=== PATIENT | female | born 1990 | race Caucasian/White ===

== ENCOUNTER 2017-07-26 11:18 | Outpatient (CLI) | payer MEDICAID, OTHER ==
[2017-07-26 18:51] LABS: BASOPHILS # (AUTO) 0.2 10^3/uL (0.0-0.1); BASOPHILS % (AUTO) 2.3 %; EOSINOPHILS # (AUTO) 0.2 10^3/uL (0.0-0.7); EOSINOPHILS % (AUTO) 3.3 %; HCT - HEMATOCRIT 39.5 % (37.0-47.0); LYMPHOCYTES # (AUTO) 2.6 10^3/uL (1.5-3.5); LYMPHOCYTES % (AUTO) 38.3 %; MEAN CORPUSCULAR HEMOGLOBIN 27.7 pg (27.0-31.0); MEAN CORPUSCULAR HGB CONC 33.1 g/dL (32.0-36.0); MEAN CORPUSCULAR VOLUME 83.7 fL (81.0-99.0); MEAN PLATELET VOLUME 7.6 fL (7.9-10.8); MONOCYTES # (AUTO) 0.5 10^3/uL (0.0-1.0); MONOCYTES % (AUTO) 6.7 %; NEUTROPHILS # (AUTO) 3.3 10^3/uL (1.5-6.6); NEUTROPHILS % (AUTO) 49.4 %; NUCLEATED RED BLOOD CELLS AUTO 0.1 /100WBC; RED BLOOD COUNT 4.71 10^6/uL (4.20-5.40); UNCORRECTED WHITE BLOOD COUNT 6.8 x10^3/uL; WHITE BLOOD COUNT 6.8 x10^3/uL (4.8-10.8)
[2017-07-26 19:33] LABS: ALBUMIN/GLOBULIN RATIO 1.6 (1.0-2.2); BILIRUBIN,TOTAL 0.2 mg/dL (0.2-1.0); BUN - BLOOD UREA NITROGEN 12 mg/dL (6-20); CALCIUM 8.7 mg/dL (8.5-10.3); CARBON DIOXIDE - CO2 24 mmol/L (21-32); CHLORIDE 107 mmol/L (101-111); CHOL/HDL RATIO 2.9 (<4.4); CHOLESTEROL 158 mg/dL; CREATININE 0.7 mg/dL (0.4-1.0); GFR - MDRD 100 (>89); GLUCOSE 90 mg/dL (70-100); HDL CHOLESTEROL 54 mg/dL; LDL/HDL RATIO 1.6 (<4.4); POTASSIUM 3.4 mmol/L (3.5-5.0); SODIUM 139 mmol/L (135-145); TOTAL PROTEIN 7.7 g/dL (6.7-8.2); TRIGLYCERIDES 78 mg/dL; VLDL CHOLESTEROL 16 mg/dL
[2017-07-26 19:42] LABS: THYROID STIMULATING HORMONE 7.66 uIU/mL (0.34-5.60)
== END 2017-07-26 11:19 | disposition home or self-care (01) ==
LOC: LAB.N 11:18
PROVIDERS: ATTEND Nurse Practitioner Gerontology
DX: Z13.9 Encounter for screening, unspecified (principal)
CPT/HCPCS: 36415; 80053; 80061; 84439; 84443; 85025

== ENCOUNTER 2018-03-17 09:01 | Outpatient (CLI) | payer MEDICAID | END 2018-03-17 09:02 | LOC: LAB.N 09:01 | PROVIDERS: ATTEND Nurse Practitioner Gerontology | DX: E03.9 Hypothyroidism, unspecified (principal) | CPT/HCPCS: 36415; 84443 ==

== ENCOUNTER 2018-05-05 15:59 | Outpatient (CLI) | payer MEDICAID | END 2018-05-05 16:00 | disposition home or self-care (01) | LOC: LAB 15:59 | PROVIDERS: ATTEND Nurse Practitioner Gerontology | DX: E03.9 Hypothyroidism, unspecified (principal) | CPT/HCPCS: 36415; 84443 ==

== ENCOUNTER 2018-07-14 09:26 | Outpatient (CLI) | payer MEDICAID ==
--- NOTE | 2018-07-15 13:16 | Ultrasound Report ---
Reason: BREAST LUMPS LEFT Procedure Date: 07/14/2018 Accession Number: [id number] / [id number] Procedure: US - Breast Unilateral Limited CPT Code: FULL RESULT: EXAM: Breast Unilateral Limited Right, Breast Unilateral Limited Left DATE: 07/14/2018 10:50 AM CLINICAL HISTORY: BILATERAL BREAST LUMPS TECHNIQUE: Real-time scanning by the massotherapist was saved static images reviewed. COMPARISON: None FINDINGS: Right breast: The right breast lower outer quadrant is scanned. No cystic or solid mass or abnormal fluid collections are identified. Left breast: The left breast lower inner quadrant is scanned. No cystic or solid mass or abnormal fluid collections are identified. IMPRESSION: 1. Negative right breast ultrasound lower outer quadrant. 2. Negative left breast ultrasound lower inner quadrant. BI-RADS 1: Negative
--- NOTE | 2018-07-15 13:16 | Ultrasound Report ---
Reason: BREAST LUMPS RIGHT Procedure Date: 07/14/2018 Accession Number: [id number] / [id number] Procedure: US - Breast Unilateral Limited CPT Code: FULL RESULT: EXAM: Breast Unilateral Limited Right, Breast Unilateral Limited Left DATE: 07/14/2018 10:50 AM CLINICAL HISTORY: BILATERAL BREAST LUMPS TECHNIQUE: Real-time scanning by the environmental marketer was saved static images reviewed. COMPARISON: None FINDINGS: Right breast: The right breast lower outer quadrant is scanned. No cystic or solid mass or abnormal fluid collections are identified. Left breast: The left breast lower inner quadrant is scanned. No cystic or solid mass or abnormal fluid collections are identified. IMPRESSION: 1. Negative right breast ultrasound lower outer quadrant. 2. Negative left breast ultrasound lower inner quadrant. BI-RADS 1: Negative
== END 2018-07-14 09:27 | disposition home or self-care (01) ==
LOC: DI 09:26
PROVIDERS: ATTEND Nurse Practitioner Gerontology
DX: N63.20 Unspecified lump in the left breast, unspecified quadrant (principal); N63.10 Unspecified lump in the right breast, unspecified quadrant
CPT/HCPCS: 76642

== ENCOUNTER 2018-08-27 16:57 | Outpatient (CLI) | payer MEDICAID ==
--- NOTE | 2018-08-28 10:49 | Ultrasound Report ---
Reason: PAINFUL MENSTRUAL FLOW Procedure Date: 08/27/2018 Accession Number: [id number] / [id number] Procedure: US - Pelvic w/Transvaginal CPT Code: FULL RESULT: EXAM: PELVIC ULTRASOUND EXAM DATE: 08/27/2018 05:06 PM. CLINICAL HISTORY: Painful menstrual flow. COMPARISON: None. TECHNIQUE: Realtime transabdominal pelvic scan performed to identify the uterus and adnexa and as an overview of other pelvic structures, followed by transvaginal scan to provide greater detail of the uterus and adnexa, with static image documentation. FINDINGS: Uterus: 7.5 x 2.4 x 3.6 cm, volume 34 cc. Anteverted position. Normal overall size and echotexture. Masses: None. Endometrium: 7 mm. Normal. Cervix: Unremarkable. Right Ovary: Not visualized. Left Ovary: Not visualized. Free Fluid: None. Other: None. IMPRESSION: Normal appearing endometrium. Nonvisualization of the ovaries and adnexa. [facility]
== END 2018-08-27 16:58 | disposition home or self-care (01) ==
LOC: DI 16:57
PROVIDERS: ATTEND Nurse Practitioner Gerontology
DX: N94.6 Dysmenorrhea, unspecified (principal)
CPT/HCPCS: 76830; 76856

== ENCOUNTER 2022-12-05 15:10 | Outpatient (CLI) | payer BC ==
[2022-12-05 17:34] LABS: BASOPHILS # (AUTO) 0.1 10^3/uL (0.0-0.1); BASOPHILS % (AUTO) 1.2 %; EOSINOPHILS # (AUTO) 0.1 10^3/uL (0.0-0.7); EOSINOPHILS % (AUTO) 1.9 %; HCT - HEMATOCRIT 40.1 % (37.0-47.0); HGB - HEMOGLOBIN 13.1 g/dL (12.0-16.0); LYMPHOCYTES # (AUTO) 1.8 10^3/uL (1.5-3.5); LYMPHOCYTES % (AUTO) 26.5 %; MEAN CORPUSCULAR HEMOGLOBIN 27.3 pg (27.0-31.0); MEAN CORPUSCULAR HGB CONC 32.7 g/dL (32.0-36.0); MEAN CORPUSCULAR VOLUME 83.7 fL (81.0-99.0); MEAN PLATELET VOLUME 9.3 fL (7.9-10.8); MONOCYTES # (AUTO) 0.4 10^3/uL (0.0-1.0); NEUTROPHILS # (AUTO) 4.3 10^3/uL (1.5-6.6); NEUTROPHILS % (AUTO) 64.3 %; PLT - PLATELET COUNT 227 10^3/uL (130-450); RED BLOOD COUNT 4.79 10^6/uL (4.20-5.40); RED CELL DISTRIBUTION WIDTH 13.5 % (12.0-15.0); WHITE BLOOD COUNT 6.7 x10^3/uL (4.8-10.8)
[2022-12-05 18:09] LABS: ALBUMIN 4.6 g/dL (3.2-5.5); ALBUMIN/GLOBULIN RATIO 1.5 (1.0-2.2); ALKALINE PHOSPHATASE 92 IU/L (42-121); ALT ALANINE AMINOTRANSFERASE 46 IU/L (10-60); AST ASPARTATE AMINOTRANSFERASE 34 IU/L (10-42); BILIRUBIN,TOTAL 0.4 mg/dL (0.2-1.0); BUN - BLOOD UREA NITROGEN 15 mg/dL (6-20); CALCIUM 9.1 mg/dL (8.5-10.3); CARBON DIOXIDE - CO2 28 mmol/L (21-32); CHLORIDE 107 mmol/L (101-111); CHOL/HDL RATIO 2.6 (<4.4); CHOLESTEROL 153 mg/dL; CREATININE 0.8 mg/dL (0.4-1.0); GFR - MDRD 83 (>89); GLUCOSE 104 mg/dL (70-100); HDL CHOLESTEROL 60 mg/dL; LDL CHOLESTEROL,CALCULATED 71 mg/dL; LDL/HDL RATIO 1.2 (<4.4); POTASSIUM 4.1 mmol/L (3.5-5.0); SODIUM 143 mmol/L (135-145); TOTAL PROTEIN 7.6 g/dL (6.7-8.2); TRIGLYCERIDES 111 mg/dL; VLDL CHOLESTEROL 22 mg/dL
[2022-12-05 18:26] LABS: THYROID STIMULATING HORMONE 2.32 uIU/mL (0.34-5.60)
[2022-12-05 20:45] LABS: ESTIMATED AVERAGE GLUCOSE 126 mg/dL (70-100)
== END 2022-12-05 15:11 | disposition home or self-care (01) ==
LOC: LAB.N 15:10
PROVIDERS: ATTEND Nurse Practitioner Family
DX: Z00.00 Encounter for general adult medical examination without abnormal findings (principal); E03.9 Hypothyroidism, unspecified
CPT/HCPCS: 36415; 80053; 80061; 83036; 83721; 84443; 85025

== ENCOUNTER 2023-06-05 15:07 | Outpatient (CLI) | payer BC ==
[2023-06-05 20:37] LABS: ESTIMATED AVERAGE GLUCOSE 114 mg/dL (70-100); HEMOGLOBIN A1c% 5.6 % (4.27-6.07)
== END 2023-06-05 15:08 | disposition home or self-care (01) ==
LOC: LAB.N 15:07
PROVIDERS: ATTEND Nurse Practitioner Family
DX: R73.03 Prediabetes (principal)
CPT/HCPCS: 36415; 83036